=== PATIENT | male | born 1950 | race Caucasian/White ===

== ENCOUNTER 2019-01-21 20:45 | Emergency (ER) | payer MEDICARE, OTHER ==
[2019-01-21] MEDS ORDERED: Adacel (T-DAP) 0.5 ML SYRINGE ONE (21:07)
[2019-01-21] MEDS ORDERED: Ibuprofen 800 MG TAB ONE (21:18)
--- NOTE | 2019-01-21 21:39 | RAD ---
XR Foot Lt 3 View STANDARD History: [Injury. Stepped on nail.] Comparison: None. Findings: There is soft tissue defect the plantar midfoot with soft tissue swelling. No fracture is a ppreciated. No radiopaque foreign object. Impression: Plantar midfoot soft tissue wound and swelling without radiopaque foreign object apprecia dave nor fracture.
== END 2019-01-21 21:49 | disposition home or self-care (01) ==
LOC: SCSER 20:45
DX: S91.332A Puncture wound without foreign body, left foot, initial encounter (principal); Z23 Encounter for immunization; I10 Essential (primary) hypertension; I25.10 Atherosclerotic heart disease of native coronary artery without angina pectoris; E78.5 Hyperlipidemia, unspecified; Z79.899 Other long term (current) drug therapy; Z79.82 Long term (current) use of aspirin; W45.0XXA Nail entering through skin, initial encounter
CPT/HCPCS: 90471; 90715

== ENCOUNTER 2024-02-19 10:35 | Outpatient (CLI) | payer MEDICARE ==
[2024-02-19 12:08] LABS: #Basophils 0.03 10x3/uL (0.0-0.2); #Eosinphils 0.05 10x3/uL (0.0-0.5); #Monocytes 0.79 10x3/uL (0.0-1.1); #Neutrophils 4.43 10x3/uL (1.5-8.4); %Basophils 0.4 % (0.0-2.0); %Eosinophils 0.7 % (0.0-6.0); %Lymphocytes 23.5 % (18.0-47.0); %Monocytes 11.4 % (0.0-10.0); %Neutrophils 63.9 % (40.0-75.0); Hematocrit 36.5 % (38.8-50.0); Hemoglobin 13.1 g/dL (13.5-17.5); Mean Corpuscular HGB CONC 35.9 g/dL (32.0-36.0); Mean Corpuscular Hemoglobin 30.8 pg (27.0-33.0); Mean Corpuscular Volume 85.7 fL (81.2-95.1); Mean Platelet Volume 10.7 fL (7.4-10.4); Platelet Count 206 10x3/uL (150-450); Red Blood Cell (RBC) Count 4.26 10x6/uL (4.32-5.72); White Blood Cell (WBC) Count 6.9 10x3/uL (3.5-10.5)
[2024-02-19 12:43] LABS: ALT (SGPT) 27 U/L (8-55); AST (SGOT) 37 U/L (5-34); Albumin 4.3 g/dL (3.4-4.8); Alkaline Phosphatase 61 U/L (40-110); Anion Gap 15 mmol/L (10-20); BUN (Urea Nitrogen) 44 mg/dL (8.4-25.7); Bilirubin, Total 1.5 mg/dL (0.2-1.2); Calc. Creatinine Clearance 0 mL/min (70-130); Calcium 9.6 mg/dL (7.8-10.44); Carbon Dioxide 23 mmol/L (23-31); Chloride 105 mmol/L (98-107); Estimated GFR 63; Globulin 2.5 g/dL (2.4-3.5); Glucose 88 mg/dL (83-110); Potassium 4.2 mmol/L (3.5-5.1); Protein, Total 6.8 g/dL (5.8-8.1); Sodium 139 mmol/L (136-145)
== END 2024-02-19 10:36 | disposition home or self-care (01) ==
LOC: LABBT 10:35
PROVIDERS: ATTEND Internal Medicine Cardiovascular Disease
DX: Z01.812 Encounter for preprocedural laboratory examination (principal)
CPT/HCPCS: 80053; 85025

== ENCOUNTER 2024-02-24 05:43 | Day surgery (SDC) | payer MEDICARE ==
[2024-02-19 11:22] VITALS: BMI 28.8
[2024-02-24] MEDS ORDERED: Adenosine 6 mg (2 mL) VIAL ONE (06:16)
[2024-02-24] MEDS ORDERED: Heparin 10,000 UNITS/ 10 ML VIAL ONE (06:16)
[2024-02-24] MEDS ORDERED: Nitroglycerin 50 MG/250 ML BOT 0 ML ONE (06:16)
[2024-02-24] MEDS ORDERED: fentaNYL 50 mcg/mL 1 mL Vial ONE (06:42)
[2024-02-24] MEDS ORDERED: Midazolam HCl 2 mg/2 ml Vial ONE (06:42)
[2024-02-24] MEDS ORDERED: Protamine Sulfate 50 MG/5 ML VIAL ONE (07:54)
[2024-02-24] MEDS ORDERED: Iopamidol 370 76% 100 ML VIAL ONE (11:58)
== END 2024-02-24 16:00 | disposition home or self-care (01) ==
LOC: SDC 05:43
PROVIDERS: ATTEND Internal Medicine Cardiovascular Disease
PROC: 4A023N7 Measurement of Cardiac Sampling and Pressure, Left Heart, Percutaneous Approach (ICD-10-PCS; principal; 2024-02-24)
DX: I25.10 Atherosclerotic heart disease of native coronary artery without angina pectoris (principal); R94.39 Abnormal result of other cardiovascular function study; E78.00 Pure hypercholesterolemia, unspecified; I10 Essential (primary) hypertension; R00.0 Tachycardia, unspecified; Z95.3 Presence of xenogenic heart valve; Z95.1 Presence of aortocoronary bypass graft; Z88.0 Allergy status to penicillin; Z88.2 Allergy status to sulfonamides; Z79.899 Other long term (current) drug therapy
CPT/HCPCS: 85347; 93459; C1769 ×3; J1644; J2250; J2720; J3010; Q9967; 93458; 99152; 99153; J0153